=== PATIENT | male | born 1995 | race African-American/Black ===

== ENCOUNTER 2023-10-15 07:24 | Emergency (ER) | payer SELFPAY ==
[2023-10-15 07:40] VITALS: BP 127/75; PULSE 81; RESP 16; TEMP 98; BMI 27.3
== END 2023-10-15 08:34 | disposition home or self-care (01) ==
LOC: JER 07:24 → JERFT 07:24
DX: K59.00 Constipation, unspecified (principal); K62.5 Hemorrhage of anus and rectum
CPT/HCPCS: 99283-25